=== PATIENT | male | born 1945 | race Two or more races ===

== ENCOUNTER 2023-09-15 08:20 | Inpatient (IN) | payer OTHER ==
[~2023-09-15] VITALS: Ht 165.1 cm; Wt 104.0 kg
[2023-09-15 08:48] LABS: Basophils # (auto) 0 10 ^3/uL (0-0.2); Eosinophils # (auto) 0.1 10 ^3/uL (0-0.8); Eosinophils % (auto) 1.3 % (0.0-7.0); Lymphocytes # (auto) 1.2 10 ^3/uL (0.4-5.4); Neutrophils # (auto) 4.5 10 ^3/uL (1.6-8.6); Nucleated Red Blood Cells % 0.1 %; White Blood Cell 6.4 10^3/uL (4.4-10.8)
[2023-09-15 08:50] LABS: Basophils % (auto) 0.4 % (0.0-2.0); Hematocrit 28.6 % (41.0-53.0); Lymphocytes % (auto) 19.2 % (10.0-50.0); Mean Corpuscular Hemoglobin 25.4 pg (28.0-32.0); Mean Corpuscular Hgb Conc. 31.4 g/dL (32.0-36.0); Monocytes # (auto) 0.6 10 ^3/uL (0-1.3); Monocytes % (auto) 8.7 % (0.0-12.0); Neutrophils % (auto) 70.4 % (37.0-80.0); Red Blood Cells 3.54 10^6/uL (4.5-5.90); Red Cell Distribution Width 16.9 % (11.8-14.3)
[2023-09-15 09:27] LABS: Alanine Aminotransferase 26 U/L (7-40); Albumin 4.3 g/dL (3.2-4.8); Alkaline Phosphatase 88 U/L (46-116); Anion Gap 8 (5-15); Aspartate Aminotransferase 24 U/L (13-40); BUN/Creatinine Ratio 22.9 (10.0-20.0); Blood Urea Nitrogen 35 mg/dL (9-23); Carbon Dioxide 23 mmol/L (20-30); Chloride 108 mmol/L (98-107); Glucose 169 mg/dL (74-106); Potassium 5.3 mmol/L (3.5-5.1); Sodium 139 mmol/L (136-145)
[2023-09-15 09:28] LABS: Bilirubin, Total 0.9 mg/dL (0.2-1.0); Total Protein 5.8 g/dL (5.7-8.2)
[2023-09-15 10:25] VITALS: PULSE 78; RESP 20; O2SAT 99
[2023-09-15] MEDS: SODIUM ZIRCONIUM CYCL 10 GM PAK PO ONE (11:24)
[2023-09-15] MEDS: FUROSEMIDE 20 MG/2 ML VIAL IV ONE (11:26)
[2023-09-15] MEDS: SODIUM BICARB 8.4% 50Meq/50ml SYR INJ IV ONE (11:26)
[2023-09-15] MEDS: CALCIUM CHL 100MG/ML 500 MG in D5W 5% 100 ML IV ONE (12:27)
[2023-09-15] MEDS ORDERED: DEXTROSE (50%) 50ML SYRG IV PRN (12:45)
[2023-09-15 13:45] LABS: INR 1.44 (0.9-1.15); Prothrombin Time 14.8 sec (9.3-11.8)
[2023-09-15 13:46] LABS: Creatinine, Urine 44.91 mg/dL (30.0-125.0)
[2023-09-15] MEDS: InsuLIN REG 1unit/0.01ml Soln (100units/ml) SC SCH (17:00)
[2023-09-15] MEDS: ACCU-CHEK COMFORT CURVE STRIP VI SCH (17:18)
[2023-09-15 17:56] VITALS: BP 146/76; PULSE 84; RESP 18; TEMP 98.3; O2SAT 100
[2023-09-15 20:00] VITALS: PULSE 83; PULSE 91; RESP 22; O2SAT 100
[2023-09-15 20:05] LABS: Urine Bacteria NONE SEEN /hpf (None Seen); Urine Blood Negative /uL (Negative); Urine Clarity Clear (Clear); Urine Color Colorless (Yellow); Urine Protein, UAD TRACE (Negative); Urine Specific Gravity 1.013 (1.001-1.035); Urine Urobilinogen Normal (Negative); Urine WBC 5 /hpf (0 - 3); Urine pH 5.5 (5.0-8.0)
[2023-09-15 20:19] LABS: Triglycerides 68 mg/dL (< 150)
[2023-09-15 20:20] LABS: LDL Cholesterol 40 mg/dL (< 100)
[2023-09-15 20:21] LABS: Cholesterol 93 mg/dL (< 200); HDL Cholesterol 43 mg/dL (40-59)
[2023-09-15] MEDS: ATORVASTATIN 20 MG TAB PO SCH (21:52)
[2023-09-15] MEDS: CARVEDILOL 12.5 MG TAB PO SCH (21:52)
[2023-09-15] MEDS: FUROSEMIDE 20 MG/2 ML VIAL IV SCH (21:52)
[2023-09-15 22:00] VITALS: BP 102/69; PULSE 63; RESP 20; TEMP 98; O2SAT 96
[2023-09-16] VITALS (7 sets, daily range): BP systolic 105–134; BP diastolic 52–76; PULSE 65–82; RESP 18–20; TEMP 97.5–98.6; O2SAT 93–100
[2023-09-16 06:55] LABS: Alanine Aminotransferase 18 U/L (7-40); Albumin 3.7 g/dL (3.2-4.8); Alkaline Phosphatase 72 U/L (46-116); Anion Gap 6 (5-15); BUN/Creatinine Ratio 17.9 (10.0-20.0); Blood Urea Nitrogen 28 mg/dL (9-23); Calcium 8.6 mg/dL (8.7-10.4); Carbon Dioxide 28 mmol/L (20-30); Chloride 104 mmol/L (98-107); Glucose 167 mg/dL (74-106); Potassium 4.6 mmol/L (3.5-5.1); Sodium 138 mmol/L (136-145)
[2023-09-16 06:56] LABS: Aspartate Aminotransferase 16 U/L (13-40); Bilirubin, Total 0.8 mg/dL (0.2-1.0); Total Protein 5.4 g/dL (5.7-8.2)
[2023-09-16 06:56] LABS: Basophils # (auto) 0 10 ^3/uL (0-0.2); Eosinophils # (auto) 0.1 10 ^3/uL (0-0.8); Hemoglobin 8.1 g/dL (13.5-17.5); Lymphocytes # (auto) 1.2 10 ^3/uL (0.4-5.4); Mean Corpuscular Hemoglobin 25.4 pg (28.0-32.0); Red Blood Cells 3.21 10^6/uL (4.5-5.90); Red Cell Distribution Width 17.4 % (11.8-14.3); White Blood Cell 6.2 10^3/uL (4.4-10.8)
[2023-09-16 06:57] LABS: Basophils % (auto) 0.5 % (0.0-2.0); Hematocrit 25.7 % (41.0-53.0); Lymphocytes % (auto) 19.8 % (10.0-50.0); Mean Corpuscular Hgb Conc. 31.7 g/dL (32.0-36.0); Monocytes # (auto) 0.7 10 ^3/uL (0-1.3); Monocytes % (auto) 10.6 % (0.0-12.0); Neutrophils # (auto) 4.1 10 ^3/uL (1.6-8.6); Neutrophils % (auto) 67.1 % (37.0-80.0); Nucleated Red Blood Cells % 0.1 %
[2023-09-16] MEDS: PANTOPRAZOLE 40 MG/10 ML VIAL INJ IV SCH (08:20)
[2023-09-16] MEDS: EMPAGLIFLOZIN 10 MG TAB PO SCH (08:20)
[2023-09-16] MEDS ORDERED: ASPirin 81 mg TAB PO SCH (10:00)
[2023-09-16] MEDS ORDERED: ENOXAPARIN SOD 40 MG/0.4 ML SYRINGE SC SCH (10:00)
[2023-09-16 11:05] LABS: % Iron Saturation 6.7 % (20-55)
[2023-09-16] MEDS: cefTRIAXone 1GM/50ML D5W 50 ML IV ONE (13:15)
[2023-09-17 05:00] VITALS: BP 95/61; PULSE 84; RESP 20; TEMP 97.6; O2SAT 95
[2023-09-17 06:19] LABS: Basophils # (auto) 0 10 ^3/uL (0-0.2); Eosinophils # (auto) 0.1 10 ^3/uL (0-0.8); Monocytes # (auto) 0.7 10 ^3/uL (0-1.3); Neutrophils # (auto) 4.2 10 ^3/uL (1.6-8.6); Nucleated Red Blood Cells % 0.1 %; White Blood Cell 6.3 10^3/uL (4.4-10.8)
[2023-09-17 06:20] LABS: Anion Gap 6 (5-15); Carbon Dioxide 29 mmol/L (20-30); Chloride 103 mmol/L (98-107); Potassium 4.3 mmol/L (3.5-5.1); Sodium 138 mmol/L (136-145)
[2023-09-17 06:21] LABS: Calcium 8.4 mg/dL (8.7-10.4)
[2023-09-17 06:23] LABS: Basophils % (auto) 0.6 % (0.0-2.0); Hematocrit 25.6 % (41.0-53.0); Hemoglobin 8.4 g/dL (13.5-17.5); Lymphocytes # (auto) 1.2 10 ^3/uL (0.4-5.4); Lymphocytes % (auto) 19.6 % (10.0-50.0); Mean Corpuscular Hemoglobin 25.8 pg (28.0-32.0); Mean Corpuscular Hgb Conc. 32.9 g/dL (32.0-36.0); Mean Corpuscular Volume 78.4 fL (80.0-100.0); Monocytes % (auto) 10.7 % (0.0-12.0); Neutrophils % (auto) 67.1 % (37.0-80.0); Red Blood Cells 3.27 10^6/uL (4.5-5.90); Red Cell Distribution Width 17.1 % (11.8-14.3)
[2023-09-17 06:26] LABS: Blood Urea Nitrogen 28 mg/dL (9-23); Glucose 150 mg/dL (74-106); Magnesium 1.6 mg/dL (1.6-2.6)
[2023-09-17 07:11] LABS: BUN/Creatinine Ratio 16.5 (10.0-20.0)
[2023-09-17 08:00] VITALS: PULSE 73; PULSE 75; O2SAT 96
[2023-09-17] MEDS: cefTRIAXone 1GM/50ML D5W 50 ML IV SCH (09:32)
[2023-09-17 09:33] VITALS: BP 121/67; PULSE 81; RESP 18; TEMP 98.1; O2SAT 95
[2023-09-17] MEDS ORDERED: FURO1TAB31 PO (10:05)
[2023-09-17] MEDS ORDERED: CEPH500C PO (10:05)
[2023-09-17] MEDS ORDERED: METF-929 PO (10:31)
[2023-09-17] MEDS ORDERED: TAMS1CAP25 PO (10:31)
[2023-09-17] MEDS ORDERED: ATOR40TA52 PO (10:31)
[2023-09-17] MEDS ORDERED: RIV20T PO (10:31)
[2023-09-17] MEDS ORDERED: MET50T GT (10:31)
[2023-09-17] MEDS ORDERED: LEVO200T7 PO (10:39)
[2023-09-17] MEDS ORDERED: GLIP5TAB12 PO (10:39)
[2023-09-17] MEDS ORDERED: LOSA25TA15 PO (10:39)
[2023-09-17] MEDS ORDERED: FER325T PO (10:39)
[2023-09-17] MEDS ORDERED: DOCU-94 PO (10:39)
[2023-09-17] MEDS ORDERED: GABA-1250 PO (10:39)
[2023-09-17 12:47] VITALS: BP 108/59; PULSE 81; RESP 18; TEMP 97.6; O2SAT 81
[2023-09-17 14:29] VITALS: BP 121/67; PULSE 81; TEMP 36.4
== END 2023-09-17 15:36 | disposition home or self-care (01) | DRG 291 ==
LOC: ER 08:20 → TELE 12:44 → TELE-WESTW 12:44
PROVIDERS: ADMIT Nurse Practitioner Family; ATTEND Internal Medicine Geriatric Medicine
DX: I13.0 Hypertensive heart and chronic kidney disease with heart failure and stage 1 through stage 4 chronic kidney disease, or unspecified chronic kidney disease (principal); I50.23 Acute on chronic systolic (congestive) heart failure; J96.01 Acute respiratory failure with hypoxia; I48.20 Chronic atrial fibrillation, unspecified; N17.9 Acute kidney failure, unspecified; D62 Acute posthemorrhagic anemia; K92.2 Gastrointestinal hemorrhage, unspecified; N39.0 Urinary tract infection, site not specified; E78.5 Hyperlipidemia, unspecified; E03.9 Hypothyroidism, unspecified; N40.0 Benign prostatic hyperplasia without lower urinary tract symptoms; F17.290 Nicotine dependence, other tobacco product, uncomplicated; D50.9 Iron deficiency anemia, unspecified; E66.9 Obesity, unspecified; E87.5 Hyperkalemia; I27.20 Pulmonary hypertension, unspecified; N28.1 Cyst of kidney, acquired; N18.31 Chronic kidney disease, stage 3a; D63.8 Anemia in other chronic diseases classified elsewhere; E11.65 Type 2 diabetes mellitus with hyperglycemia; I25.10 Atherosclerotic heart disease of native coronary artery without angina pectoris; E11.22 Type 2 diabetes mellitus with diabetic chronic kidney disease; Z95.1 Presence of aortocoronary bypass graft; I25.2 Old myocardial infarction; Z79.01 Long term (current) use of anticoagulants; Z95.5 Presence of coronary angioplasty implant and graft; Z68.38 Body mass index [BMI] 38.0-38.9, adult; Z79.84 Long term (current) use of oral hypoglycemic drugs
CPT/HCPCS: 36415; 71046; 76775; 78582; 80048; 80053; 80061; 81001; 82270; 82306; 82570; 82728; 82962; 83036; 83540; 83550; 83735; 83880; 83970; 84100; 84132; 84156; 84300; 84443; 84484; 85025; 85379; 85610; 86850; 86900; 86901; 93005; 93306; 93970; 96365; 96375; 99291; C9113; G0378; J1815; J7060